=== PATIENT | male | born 1955 | race Caucasian/White ===

== ENCOUNTER 2020-10-24 10:01 | Observation (INO) ==
[2020-10-24] MEDS ORDERED: NS 0.9% 1000 ml BAG 1,000 ML IV ONE (11:43)
[2020-10-24 12:58] LABS: ABS Lymphocytes 1.2 10^3/ul (1.0-4.8); ABS Monocytes 0.6 10^3/ul (0-0.8); ABS Neutrophils 6.9 10^3/ul (1.5-7.7); Eosinophil % 0.3 %; Hematocrit 50 % (42-52); Hemoglobin 17.6 g/dL (14.0-18.0); Lymphocyte % 13.5 %; Mean Corpuscular HGB Conc 36 g/dL (31-36); Mean Corpuscular Hemoglobin 35 pg (27-31); Mean Corpuscular Volume 97 fL (80-94); Mean Platelet Volume 7.1 fL (7.4-10.4); Nucleated Red Blood Cells % 0.1; Platelet Count 410 10^3/uL (150-450); Red Blood Count 5.09 10^6 /uL (4.18-5.48); Red Cell Distribution Width 13 % (10-15); White Blood Count 8.7 10^3/uL (3.5-10.8)
[2020-10-24 13:14] LABS: ALT 14 U/L (7-52); AST 20 U/L (13-39); Albumin 4.7 g/dL (3.2-5.2); Albumin/Globulin Ratio 1.5 (1-3); Alkaline Phosphatase 57 U/L (34-104); Anion Gap 9 mmol/L (2-11); BUN/Creatinine Ratio 10.8 (8-20); Blood Urea Nitrogen 7 mg/dL (6-24); CO2 Carbon Dioxide 23 mmol/L (22-32); Calcium 9.6 mg/dL (8.6-10.3); Chloride 98 mmol/L (101-111); EGFR African American 149.6 (>60); EGFR Non-African American 123.7 (>60); Globulin 3.1 g/dL (2-4); Glucose 93 mg/dL (70-100); Potassium 3.7 mmol/L (3.5-5.0); Sodium 130 mmol/L (135-145); Total Protein 7.8 g/dL (6.4-8.9)
[2020-10-24 14:01] LABS: Troponin I 0.18 ng/mL (<0.03)
[2020-10-24 16:11] LABS: Troponin I 0.27 ng/mL (<0.03)
[2020-10-24] MEDS ORDERED: Iohexol 350 (CONTRAST) 500 ML MDV IV ONE (17:40)
[2020-10-24] MEDS ORDERED: CMC:Pravastatin 20 mg TAB (NF) PO SCH (18:00)
[2020-10-25 05:34] LABS: HDL Cholesterol 43.3 mg/dL
[2020-10-25 07:37] VITALS: BP 118/66
[2020-10-25] MEDS ORDERED: Aspirin EC 81 mg TAB.EC (enteric coated) PO SCH (09:00)
== END 2020-10-25 11:15 | disposition home or self-care (01) ==
LOC: ED 10:01 → MEDTELE 10:01
PROVIDERS: ADMIT Internal Medicine; ATTEND Internal Medicine